=== PATIENT | male | born 1940 | race Caucasian/White ===

== ENCOUNTER 2019-04-29 06:02 | Day surgery (SDC) | payer MEDICARE ==
[2019-04-28 10:52] LABS: BASOPHILS % (AUTO) 0.6 % (0-1); EOSINOPHILS # (AUTO) 0.2 X10'3 (0-0.9); EOSINOPHILS % (AUTO) 2.6 % (0-6); HEMATOCRIT 39.6 % (42.0-52.0); HEMOGLOBIN 13.4 g/dl (14.0-17.9); LYMPHOCYTES # (AUTO) 1.8 X10'3 (1.1-4.8); LYMPHOCYTES % (AUTO) 25.2 % (21-51); MEAN CORPUSCULAR HEMOGLOBIN 32.1 PG (27.0-31.0); MEAN CORPUSCULAR VOLUME 94.3 FL (78-98); MEAN PLATELET VOLUME 7.1 FL (7.4-10.4); MONOCYTES # (AUTO) 0.9 X10'3 (0-0.9); NEUTROPHILS # (AUTO) 4.3 X10'3 (1.8-7.7); NEUTROPHILS % (AUTO) 59.6 % (42-75); PLATELET COUNT 366 X10'3 (140-440); RED CELL DISTRIBUTION WIDTH 14.6 % (11.5-14.5); WHITE BLOOD COUNT 7.3 X10'3 (4.5-11.0)
[2019-04-28 11:00] LABS: ALBUMIN 3.7 G/DL (3.4-5.0); ANION GAP 8 (8-16); BLOOD UREA NITROGEN 25 MG/DL (7-18); BUN/CREATININE RATIO 17.6 (5.4-32.0); CALCIUM 9.1 MG/DL (8.5-10.1); CHLORIDE 104 MMOL/L (99-107); CREATININE 1.42 MG/DL (0.60-1.10); GLUCOSE 91 MG/DL (70-104); POTASSIUM 4.5 MMOL/L (3.5-5.1); SODIUM 137 MMOL/L (135-145); TOTAL CARBON DIOXIDE 25.2 MMOL/L (24-32); eGFR 48 ML/MIN
[2019-04-28 11:02] LABS: PARTIAL THROMBOPLASTIN TIME 29 SECONDS (22-32)
[2019-04-29] VITALS (12 sets, daily range): BP systolic 109–131; BP diastolic 57–88
[~2019-04-29] VITALS: Ht 160 cm; Wt 67.2 kg
[~2019-04-29 06:02] MED LIST: ALLO100T PO; ASPI81TA52 PO; CEFA500C8 PO; FLO0.4C PO; LOP25T PO; MELO-100 PO; MULT1TAB74 PO; TRIA1TAB3 PO
--- NOTE | 2019-04-29 06:05 | NUR ---
Pt ambulated independently to unit. Pt and family oriented to room, including call light use. Vital signs obtained, will continue to monitor.
[2019-04-29] MEDS ORDERED: LORazepam 0.5 MG tablet PO PRN (06:20)
[2019-04-29] MEDS ORDERED: diphenhydrAMINE 25mg capsule PO PRN (06:20)
[2019-04-29] MEDS ORDERED: normal saline 1,000 ML IV SCH (06:20)
[2019-04-29] MEDS ORDERED: LIDOcaine/PRILOcaine 5gm cream TP ONE (06:25)
[2019-04-29] MEDS ORDERED: acetylcysteine 200 MG/ml 4ml vial PO PRN (06:25)
[2019-04-29] MEDS ORDERED: sodium bicarbonate (8.4%) inj. 100 ML in dextrose 5%-water 1,000 ML IV ONE (06:30)
[2019-04-29] MEDS ORDERED: FOLI0.4T14 PO (06:39)
[2019-04-29] MEDS ORDERED: LORA10TA7 PO (06:39)
[2019-04-29] MEDS ORDERED: LISI1TAB32 PO (06:39)
[2019-04-29] MEDS ORDERED: HYDR-3964 PO (06:39)
[2019-04-29] MEDS ORDERED: TRIA1TAB5 PO (06:39)
[2019-04-29] MEDS ORDERED: nitroGLYCERIN-Tridil 50MG/D5W 250 ML IV ONE (07:35)
[2019-04-29] MEDS ORDERED: fentaNYL/PF 50MCG/1 ML 2ML syringe ONE (07:36)
[2019-04-29] MEDS ORDERED: verapamil 2.5 mg/ml inj IV ONE (07:36)
[2019-04-29] MEDS ORDERED: heparin 1,000unit/ml 10ml vial 10 ML ONE (07:36)
[2019-04-29] MEDS ORDERED: LIDOcaine 1% (10mg/ml)w/preservative injection 20ml MDV ONE (07:36)
[2019-04-29] MEDS ORDERED: midazolam 2 mg/2 ml injection ONE (07:36)
[2019-04-29] MEDS ORDERED: iohexol 350MG/ML 100ml bottle IV ONE (07:37)
[2019-04-29] MEDS ORDERED: iohexol 350 MG/ML 50ML vial IV ONE ×2 (07:37→08:33)
--- NOTE | 2019-04-29 07:50 | NUR ---
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
--- NOTE | 2019-04-29 09:05 | NUR ---
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 Vasc band in place, no S&S hematoma or bleeding present. Vital signs stable, breakfast offered. Will continue to closely monitor.
== END 2019-04-29 15:05 | disposition home or self-care (01) ==
LOC: SSTAY O 06:02
PROVIDERS: ATTEND Internal Medicine Cardiovascular Disease
DX: R06.02 Shortness of breath (principal); I25.10 Atherosclerotic heart disease of native coronary artery without angina pectoris; I11.0 Hypertensive heart disease with heart failure; I50.30 Unspecified diastolic (congestive) heart failure; E78.49 Other hyperlipidemia; F41.9 Anxiety disorder, unspecified; M19.90 Unspecified osteoarthritis, unspecified site; E66.9 Obesity, unspecified; Z68.26 Body mass index [BMI] 26.0-26.9, adult; Z90.49 Acquired absence of other specified parts of digestive tract; Z98.890 Other specified postprocedural states; Z79.82 Long term (current) use of aspirin; Z79.899 Other long term (current) drug therapy; Z72.89 Other problems related to lifestyle; Z87.891 Personal history of nicotine dependence; Z88.8 Allergy status to other drugs, medicaments and biological substances
CPT/HCPCS: 36415; 80048; 85025; 85610; 85730; 93005; 93458; 93567; 99152; 99153; C1769; C1894; J1644; J2001; J2250; J3010; J7030; Q0163; Q9967; 93454; A5120; J3490

== ENCOUNTER 2020-09-04 11:58 | Emergency (ER) | payer MEDICARE ==
[~2020-09-04] VITALS: Ht 152.4 cm; Wt 60.0 kg
[~2020-09-04 11:58] MED LIST changes: -CEFA500C8 PO; +FOLI0.4T14 PO; +HYDR-3964 PO; +LISI1TAB32 PO; +LORA10TA7 PO; +MULT-620 PO; -MULT1TAB74 PO; -TRIA1TAB3 PO; +TRIA1TAB5 PO
[2020-09-04 16:53] LABS: BASOPHILS % (AUTO) 0.5 % (0-1); EOSINOPHILS # (AUTO) 0.1 X10'3 (0-0.9); HEMATOCRIT 32.4 % (42.0-52.0); HEMOGLOBIN 11.1 g/dl (14.0-17.9); LYMPHOCYTES # (AUTO) 1.2 X10'3 (1.1-4.8); LYMPHOCYTES % (AUTO) 14.6 % (21-51); MEAN CORPUSCULAR HEMOGLOBIN 33.2 PG (27.0-31.0); MEAN CORPUSCULAR HGB CONC 34.3 g/dL (33.0-36.5); MEAN CORPUSCULAR VOLUME 96.8 FL (78-98); MEAN PLATELET VOLUME 7.2 FL (7.4-10.4); MONOCYTES # (AUTO) 1.2 X10'3 (0-0.9); MONOCYTES % (AUTO) 14.3 % (2-12); NEUTROPHILS # (AUTO) 5.9 X10'3 (1.8-7.7); NEUTROPHILS % (AUTO) 69.6 % (42-75); PLATELET COUNT 405 X10'3 (140-440); RED BLOOD COUNT 3.35 X10'6 (4.70-6.10); RED CELL DISTRIBUTION WIDTH 12.9 % (11.5-14.5); WHITE BLOOD COUNT 8.5 X10'3 (4.5-11.0)
[2020-09-04 17:13] LABS: LARGE PLATELETS FEW; PLATELET ESTIMATE NORMAL; TOTAL CELLS COUNTED 100
[2020-09-04 17:16] LABS: ALANINE AMINOTRANSFERASE 17 U/L (12-78); ALBUMIN 3.6 G/DL (3.4-5.0); ALBUMIN/GLOBULIN RATIO 1.1 (1.1-1.5); ALKALINE PHOSPHATASE 105 IU/L (46-116); ANION GAP 11 (8-16); ASPARTATE AMINO TRANSFERASE 16 U/L (10-37); BILIRUBIN,TOTAL 0.7 MG/DL (0.1-1.0); BLOOD UREA NITROGEN 19 MG/DL (7-18); BUN/CREATININE RATIO 14.7 (5.4-32.0); CALCIUM 8.5 MG/DL (8.5-10.1); CHLORIDE 96 MMOL/L (99-107); CREATININE 1.29 MG/DL (0.60-1.10); GLUCOSE 108 MG/DL (70-104); POTASSIUM 3.9 MMOL/L (3.5-5.1); SODIUM 130 MMOL/L (135-145); TOTAL CARBON DIOXIDE 22.6 MMOL/L (24-32); eGFR 53 ML/MIN
[2020-09-04] MEDS ORDERED: normal saline 1000ML IV soln IVB ONE (17:20)
[2020-09-04] MEDS ORDERED: iohexol 300mg/ml 100ml inj. ONE (17:58)
--- NOTE | 2020-09-04 19:17 | NUR ---
PT TO CT
--- NOTE | 2020-09-04 20:46 | NUR ---
DR COPELAND AT BEDSIDE TO EVALUATE PT
[2020-09-04 21:39] VITALS: BP 110/60
== END 2020-09-04 21:40 | disposition home or self-care (01) ==
LOC: ER 12:00
DX: S20.211A Contusion of right front wall of thorax, initial encounter (principal); D64.9 Anemia, unspecified; E87.1 Hypo-osmolality and hyponatremia; I25.10 Atherosclerotic heart disease of native coronary artery without angina pectoris; I10 Essential (primary) hypertension; M19.90 Unspecified osteoarthritis, unspecified site; Z88.1 Allergy status to other antibiotic agents; Z79.82 Long term (current) use of aspirin; Z79.899 Other long term (current) drug therapy; W19.XXXA Unspecified fall, initial encounter; Z91.81 History of falling; Y93.89 Activity, other specified; Y92.89 Other specified places as the place of occurrence of the external cause; Y99.8 Other external cause status
CPT/HCPCS: 36415; 71046; 71260; 74177; 80053; 85007; 85025; 99285; J7030; Q9967; 94760

== ENCOUNTER 2021-03-07 10:07 | Emergency (ER) | payer MEDICARE ==
[~2021-03-07] VITALS: Ht 157.5 cm; Wt 63.0 kg
[~2021-03-07 10:07] MED LIST changes: -LISI1TAB32 PO; +LISI1TAB49 PO
[2021-03-07 10:11] VITALS: BP 155/73
== END 2021-03-07 11:00 | disposition left against medical advice (07) ==
LOC: ER 10:08
DX: R30.0 Dysuria (principal); Z53.21 Procedure and treatment not carried out due to patient leaving prior to being seen by health care provider

== ENCOUNTER 2023-06-05 09:34 | Emergency (ER) | payer MEDICARE ==
[~2023-06-05] VITALS: Ht 154.9 cm; Wt 55.0 kg
[~2023-06-05 09:34] MED LIST changes: -ASPI81TA52 PO; +EMPA10TA PO; +FURO-150 PO; -HYDR-3964 PO; -LISI1TAB49 PO; -LOP25T PO; -MELO-100 PO; +METO-395 PO; +SACU1TAB PO; -TRIA1TAB5 PO
[2023-06-05 10:01] VITALS: TEMP 97.4
[2023-06-05 11:00] LABS: BASOPHILS % (AUTO) 0.4 % (0-1); EOSINOPHILS # (AUTO) 0.2 X10'3 (0-0.9); EOSINOPHILS % (AUTO) 3.8 % (0-6); HEMOGLOBIN 13.6 g/dl (14.0-17.9); LYMPHOCYTES # (AUTO) 0.7 X10'3 (1.1-4.8); LYMPHOCYTES % (AUTO) 17.8 % (21-51); MEAN CORPUSCULAR HEMOGLOBIN 31.9 PG (27.0-31.0); MEAN CORPUSCULAR HGB CONC 33.3 g/dL (33.0-36.5); MEAN PLATELET VOLUME 7.2 FL (7.4-10.4); MONOCYTES # (AUTO) 0.6 X10'3 (0-0.9); MONOCYTES % (AUTO) 14.6 % (2-12); NEUTROPHILS # (AUTO) 2.6 X10'3 (1.8-7.7); NEUTROPHILS % (AUTO) 63.4 % (42-75); PLATELET COUNT 166 X10'3 (140-440); RED BLOOD COUNT 4.27 X10'6 (4.70-6.10); RED CELL DISTRIBUTION WIDTH 13.6 % (11.5-14.5); WHITE BLOOD COUNT 4.1 X10'3 (4.5-11.0)
[2023-06-05 11:35] LABS: ALBUMIN 3.2 G/DL (3.4-5.0); ANION GAP 9 (8-16); BLOOD UREA NITROGEN 27 MG/DL (7-18); BUN/CREATININE RATIO 18.6 (10.0-20.0); CALCIUM 8.7 MG/DL (8.5-10.1); CHLORIDE 105 MMOL/L (99-107); CREATININE 1.45 MG/DL (0.60-1.10); GLUCOSE 133 MG/DL (70-104); POTASSIUM 4.4 MMOL/L (3.5-5.1); PRO BRAIN NATRIURETIC PEPTIDE 1171 PG/ML (0-450); SODIUM 137 MMOL/L (135-145); TOTAL CARBON DIOXIDE 22.9 MMOL/L (24-32); eCRCL 28 ML/MIN; eGFR 46 ML/MIN
[2023-06-05] MEDS: normal saline 1000ML IV soln IVB ONE (11:40)
[2023-06-05 12:08] LABS: BILIRUBIN,URINE NEGATIVE (Neg); CLARITY,URINE CLEAR (Clear); COLOR,URINE YELLOW (Yellow); GLUCOSE, URINE 500 mg/dl (Neg); KETONES,URINE TRACE mg/dl (Neg); LEUKOCYTE ESTERASE ,URINE NEGATIVE (Neg); NITRITES, URINE NEGATIVE (Neg); OCCULT BLOOD,URINE NEGATIVE (Neg); PH,URINE 5.5 (4.8-8.0); PROTEIN,URINE NEGATIVE (Neg); UROBILINOGEN,URINE 0.2 E.U/dL (0.2-1.0)
[2023-06-05 12:17] LABS: UA COLLECTION TYPE NON-SPECIFIED
[2023-06-05 14:00] VITALS: BP 95/53; PULSE 78; RESP 17; O2SAT 99
== END 2023-06-05 14:04 | disposition home or self-care (01) ==
LOC: ER 09:34
DX: R42 Dizziness and giddiness (principal); I95.1 Orthostatic hypotension; I25.10 Atherosclerotic heart disease of native coronary artery without angina pectoris; I10 Essential (primary) hypertension; M19.90 Unspecified osteoarthritis, unspecified site
CPT/HCPCS: 36415; 71045; 80048; 81003; 83880; 84484; 85025; 93005; 96360; 99285; J7030

== ENCOUNTER 2023-08-17 18:21 | Emergency (ER) | payer MEDICARE ==
[~2023-08-17] VITALS: Ht 157.5 cm; Wt 58.4 kg
[2023-08-17 21:25] VITALS: BP 108/65; PULSE 91; RESP 16; TEMP 97.7; O2SAT 99
== END 2023-08-17 21:26 | disposition home or self-care (01) ==
LOC: ER 18:22
DX: H54.7 Unspecified visual loss (principal); I10 Essential (primary) hypertension; I25.10 Atherosclerotic heart disease of native coronary artery without angina pectoris; M19.90 Unspecified osteoarthritis, unspecified site; Z98.890 Other specified postprocedural states; Z72.89 Other problems related to lifestyle; Z88.1 Allergy status to other antibiotic agents; Z79.899 Other long term (current) drug therapy
CPT/HCPCS: 36415; 85651; 86140; 99283